=== PATIENT | female | born 1970 | race Caucasian/White ===

== ENCOUNTER 2021-06-24 13:34 | Emergency (ER) | payer OTHER ==
[2021-06-24 13:56] VITALS: TEMP 99.3; BMI 38.7
[2021-06-24] MEDS ORDERED: ASPIRIN 325 MG TABLET PO ONE (14:14)
[2021-06-24] MEDS ORDERED: ASPIRIN 325 MG TABLET ONE (14:26)
[2021-06-24 14:59] LABS: HEMATOCRIT 41.2 % (32.4-45.2); NEUT % 75.5 % (42.8-82.8); RBC 4.28 M/mm3 (3.60-5.2); RDW 12.4 % (11.6-15.6)
[2021-06-24 15:02] LABS: BASO % 0.6 % (0-2.0); HEMOGLOBIN 13.9 GM/dl (10.7-15.3); LYMPH % 14.9 % (8-40); MCH 32.5 pg (25.7-33.7); MCHC 33.8 g/dl (32.0-36.0); MEAN CELL VOLUME 96.1 fl (80-96); MEAN PLT VOLUME 10.4 fl (7.5-11.1); PLATELET COUNT 208 10^3/uL (134-434); WHITE BLOOD COUNT 7.9 K/mm3 (4.0-10.8)
[2021-06-24 15:06] LABS: ALBUMIN 4.1 g/dl (3.4-5.0); BILIRUBIN,TOTAL 0.8 mg/dl (0.2-1); CALCIUM 8.9 mg/dl (8.5-10); CREATININE 0.6 mg/dl (0.55-1.3); TOT PROT 7.4 g/dl (6.4-8.2)
[2021-06-24 20:02] VITALS: BP 124/73; PULSE 83
== END 2021-06-24 20:04 | disposition home or self-care (01) ==
LOC: FER 13:34
DX: R07.9 Chest pain, unspecified (principal)
CPT/HCPCS: 36415; 71045-TC-FY; 80053; 82550; 84484; 85025; 85379; 93005; 99285-25; C9803; U0003; U0005